=== PATIENT | female | born 1930 | race Caucasian/White ===

== ENCOUNTER 2017-10-05 13:58 | Inpatient (IN) | payer OTHER ==
[~2017-10-05] VITALS: Ht 170.2 cm; Wt 86.9 kg
--- NOTE | ~2017-10-05 | DEA ---
[facility] [place] [address] SUMMARY Name: RACHEL DIANE Room #: 360-P [facility] IN M.R.#: [id number] Admission: 10/05/17 Attend Phys: He Barrientos DO Discharge: 10/17/17 Date of : 31 Report #: [id number] THIS REPORT FOR: //name// CC: He Ayala Akkulugaadriana DATE OF SERVICE: 10/17/2017 TIME OF : 07/17/2018 at 2:30 a.m. HOSPITAL COURSE: The patient is an 87-year-old female who was admitted secondary to sepsis from urinary tract infection. Due to delirium, dementia and her decline in status, she was made a DNR and comfort care measures only after a long discussion with the family. She did pass away peacefully at the above date and time and the body was released to the family for processing at the home. <ELECTRONICALLY SIGNED> By: He Barrientos DO 10/23/17 1222 1207 1216 He Barrientos DO /nt
--- NOTE | ~2017-10-05 | HC ---
[facility] [place] [address] CONSULTATION Name: RACHEL DIANE Room #: 170-4 ADM IN M.R.#: [id number] Admission: 10/05/17 Attend Phys: He Barrientos DO Discharge: Date of : 31 Report #: [id number] THIS REPORT FOR: //name// CC: He Mayorga INFECTIOUS DISEASES CONSULTATION REASON FOR CONSULTATION: I was asked to evaluate concerning septic shock. HISTORY OF PRESENT ILLNESS: The patient was an 87-year-old [facility] resident, who presents with decreased mental status. She does have underlying dementia. Earlier this morning, she was found by nursing staff to be more somnolent. She would not eat. She was transferred to [facility] Emergency Room. She had temperature of 99.8. She has been tachycardic, in atrial fibrillation. Blood pressure dropped into the 80s and placed on Levophed drip and received IV fluids. She is on 2 liters of oxygen per nasal cannula. She has had no nausea, vomiting or diarrhea. She had previously been treated for urinary tract infection. She has underlying dementia. PAST MEDICAL HISTORY: Dementia, breast cancer with right mastectomy and previous urinary tract infection. Further details not available. ALLERGIES: SULFA. MEDICATIONS: As noted on her MAR, having received vancomycin and Zosyn. FAMILY HISTORY: Not available. SOCIAL HISTORY: Past smoker. No significant alcohol intake. REVIEW OF SYSTEMS: As noted above. PHYSICAL EXAMINATION: VITAL SIGNS: She is tachycardic at 133, blood pressure 88/44. She has peripheral IV in place. She is on 2 liters of oxygen per nasal cannula. GENERAL: She arouses, but will not follow commands or open her eyes. SKIN: She has a decubitus to her right lateral heel. No purulent drainage. No surrounding cellulitis. HEENT: Eyes unremarkable. Mouth dry. NECK: Supple. CHEST: Clear anteriorly with crackles heard in the bases bilaterally. HEART: Regular and tachycardic. No appreciable murmur, gallop or rub. ABDOMEN: Soft. Appeared tender in the lower abdomen. The patient would yell out. Fullness in the suprapubic region. GENITOURINARY: Incontinent of urine. Perianal examination unremarkable. [address] [address] CONSULTATION Name: RACHEL DIANE Room #: [facility] IN .R.#: [id number] Admission: 10/05/17 Attend Phys: He Barrientos DO Discharge: Date of : 31 Report #: [id number] LABORATORY STUDIES: Chest x-ray, bibasilar atelectasis. Urinalysis, pyuria and bacteriuria. Sodium 143, potassium 4.1, bicarbonate 24 and creatinine 1.7. Alkaline phosphatase 132. BNP 34,555. Hemoglobin 13.5, platelet count 186,000 and white count 24,000 with 42% bands and 5% metamyelocytes. Lactate 4. Blood cultures pending. Urine culture pending. IMPRESSION: An 87-year-old [facility] resident with septic shock. I suspect urinary tract source most likely. She has atelectasis in both bases. She has acute renal failure with lactic acidosis. May have a component of congestive heart failure as well. She has marked left shift on her leukocytosis. Toxic metabolic encephalopathy most likely. RECOMMENDATIONS: IV fluid. The patient placed Smith catheter. Ultrasound of her abdomen. Continue broad antibiotic coverage for healthcare-associated urinary tract infection. Serial laboratory studies including chemistry and CBC. [place]ica is poor considering the patient's advanced age. We will continue current resuscitative measures. <ELECTRONICALLY SIGNED> By: Jonas Sánchez MD 10/06/17 1003 2253 2346 Jonas Sánchez MD /nt
--- NOTE | ~2017-10-05 | HC ---
[facility] [place] [address] CONSULTATION Name: RACHEL DIANE Room #: 360-P [facility] IN M.R.#: [id number] Admission: 10/05/17 Attend Phys: He Barrientos DO Discharge: Date of : 31 Report #: [id number] THIS REPORT FOR: //name// CC: He Barrientos Jamie Akkulugari DATE OF SERVICE: 10/10/2017 CHIEF COMPLAINT: Right heel ulcer and left foot ulcer. HISTORY OF PRESENT ILLNESS: This is an 87-year-old female patient admitted to [facility] for acute mental status changes and dementia. She was noted to have ulcerations on her right heel and left foot and I have been asked to see her with regard to wound care. The patient's [id number] is present in the room. The patient is not able to answer any questions. PAST MEDICAL HISTORY: Positive for history of urinary tract infection, acute mental status changes, dementia, dehydration, breast cancer status post right mastectomy and generalized weakness. SOCIAL HISTORY: The patient is a former smoker. No history of alcohol or drug use. ALLERGIES: SULFA. CURRENT MEDICATION: Include lorazepam, albuterol, vancomycin, fentanyl, dextrose piperacillin, amiodarone, metoprolol, Depakote, hydrocodone, ondansetron. REVIEW OF SYSTEMS: Not obtainable due to patient's decreased level of alertness. PHYSICAL EXAMINATION: VITAL SIGNS: At this time include pulse 120, respiratory rate 18, blood pressure 180/99, temperature 98.0. GENERAL: This is a chronically ill-appearing female patient who appears to be in mild distress. HEENT: Head is normocephalic. Eyes are closed. NECK: Seems supple. LUNGS: Diminished. HEART: Tachycardic. ABDOMEN: Soft, nontender. EXTREMITIES: Demonstrate diminished distal pulses with relatively normal capillary refill, 1-2+ edema is noted. She has stage III pressure ulceration to the posterior portion of the right heel. It is relatively clean with some granulation and a little bit of fibrin and there is no evidence of infection. [facility] [address] [place] [address] CONSULTATION Name: ROXIRACHEL Room #: 360-P [facility] IN ..#: [id number] Admission: 10/05/17 Attend Phys: He Barrientos DO Discharge: Date of : 31 Report #: [id number] She has a deep tissue injury to the base of the left fifth metatarsal on the left foot. CLINICAL IMPRESSION: 1. Stage III pressure ulcer, right heel. 2. Deep tissue injury to the left base of fifth metatarsal. 3. Acute mental status changes. RECOMMENDATIONS: At this point in time, recommend continued use of Prevalon boot. She will need to be turned and repositioned every 2 hours. We will recommend ongoing care to the heel with a foam based dressing, Betadine to the left foot area. She will need nutritional support to maximize wound healing. I appreciate being asked to see her in consultation. <ELECTRONICALLY SIGNED> By: Froilan Fried MD 10/11/17 1005 1829 09 Froilan Fried MD /nt
--- NOTE | ~2017-10-05 | HC ---
[facility] [place] [address] CONSULTATION Name: RACHEL DIANE Room #: 360-P [facility] IN M.R.#: [id number] Admission: 10/05/17 Attend Phys: He Barrientos DO Discharge: 10/17/17 Date of : 31 Report #: [id number] THIS REPORT FOR: //name// CC: He Barrientos DO [facility] REQUESTING PHYSICIAN: Dr. Barrientos. CHIEF COMPLAINT: Altered mental status. HISTORY OF PRESENT ILLNESS: The patient is an 87-year-old female who presented to [facility] on 10/05/2017 initially with altered mental status beginning at 7:30 that morning. She was found to have atrial fibrillation with RVR in the Emergency Department and also suspected to have urinary tract infection and subsequently has been found to have group A strep bacteremia. Unfortunately, she has had a progressive decline in her overall mental status, has not been able to take p.o. significantly. She has had overall decreased responsiveness. There was some discussion with family with regards to the possibility of pursuing hospice care, prompting my consultation. The patient is currently DNR status, does have a durable power of bankruptcy attorney in her son, Carlos. She is currently not able to respond to questions. PAST MEDICAL HISTORY: Significant for atrial fibrillation, dementia, mild aortic regurgitation, moderate mitral regurgitation, history of breast cancer in remission. PAST SURGICAL HISTORY: Right mastectomy. SOCIAL HISTORY: Former smoker. Son, Carlos, is durable power of bankruptcy attorney. I have attempted to contact today, have not received a contact back with regard to this. ALLERGIES: SULFA. MEDICATIONS: Aurora, Depakote 250 mg at bedtime, lactulose, and rivastigmine. REVIEW OF SYSTEMS: Unable to obtain secondary to the patient's clinical condition. PHYSICAL EXAMINATION: VITAL SIGNS: Temperature 37.6, pulse 77, respirations 24, blood pressure 160/84, 95% on nasal cannula. GENERAL: The patient is not alert, poor attention level. She appears to be in no acute distress. HEENT: Unable to assess extraocular movements. Conjunctivae appear to be within normal limits. [facility] [address] [place] [address] CONSULTATION Name: RACHEL DIANE Room #: 360-P [facility].#: [id number] Admission: 10/05/17 Attend Phys: He Barrientos DO Discharge: 10/17/17 Date of : 31 Report #: [id number] CARDIOVASCULAR: Regular rate and rhythm, although she does have occasional aberrant complexes likely due to her respirations, previously in AFib. RESPIRATORY: Lungs appear to be clear to auscultation at this point in time. ABDOMEN: She does wince slightly to abdominal palpation or at least has increased responsiveness. She has diminished bowel sounds overall. EXTREMITIES: Does have diffuse edema 1-2+ bilateral upper extremity and 2+ lower extremity. INTEGUMENTARY: The patient does have bandages on the right foot secondary to heel wound. LABORATORY DATA: AST 104, ALT 45, creatinine 1.7. White blood cells 24.7, nitrite positive, 2+ leukocyte esterase and bacteria greater than 30 on her original UA. ASSESSMENT AND PLAN: 1. Sepsis secondary to possible urinary tract infection versus other organ being skin, central origin. She does have noted bacteremia. Condition appears to be critical overall. Unfortunately, with decreased p.o. intake I do believe that she is a candidate for palliative care measures. She does have decreased nasolabial folds indicating the potential eminency of demise. I have attempted to talk to the DPOA and I am awaiting a return communication from him. Later was able to spend 35 min discussing advanced care planning with plan to seek comfort care. 2. Bacteremia as above. 3. Delirium, severe, hypoactive, again also affecting her current health status. She is not likely to recover her ability to take oral intake soon, and this, I believe, is likely a contributing factor to her palliative care need. 4. Dementia, unknown previous severity, but likely to be moderate to severe. I do think that it is possible that her delirium will progress her dementia significantly. 5. Atrial fibrillation with rapid ventricular response. Management per primary team, appears to be sinus currently. I will continue to follow with the patient, will contact the primary team when I am aware of their decision. I have discontinued Depakote and rivastigmine given that these medications are not likely to be of benefit at this point in time. Thank you very much for the consultation. <ELECTRONICALLY SIGNED> By: Sharan Kapoor DO 10/23/17 1930 0937 1054 Sharan Kapoor DO /nt
--- NOTE | ~2017-10-05 | EKG ---
[address] [address] ELECTROCARDIOGRAM REPORT Name: RACHEL DIANE Room #: 360-P [facility] IN M.R.#: [id number] Admission: 10/05/17 Attend Phys: He Barrientos DO Discharge: Date of : 31 Report #: [id number] THIS REPORT FOR: //name// [facility] Test Date: 2017-10-07 Test Time: 10:19:10 Pat Name: RACHEL DIANE Department: Room: 360 P Gender: F Employee Placement Specialist: blaine : 1930 Requested By: Jayce Coyne Order Number: [id number] MD: Jayce Coyne Measurements Intervals [place] Rate: 79 P: 38 NC: 131 QRS: -12 QRSD: 101 T: 61 QT: 370 QTc: 425 Interpretive Statements Sinus rhythm Abnormal lateral Q waves Anterior infarct, old Compared to ECG 10/05/2017 16:24:35 Q waves now present Myocardial infarct finding now present Atrial fibrillation no longer present Early repolarization no longer present Electronically Signed On 10-07-2017 17:28:36 DIRECTOR GENERAL by Jayce Coyne [email or web address] <ELECTRONICALLY SIGNED> By: Jayce Coyne MD 10/07/17 1728 1019 1019 Jayce Coyne MD /EPI
--- NOTE | ~2017-10-05 | EKG ---
[address] [address] ELECTROCARDIOGRAM REPORT Name: RACHEL DIANE Room #: 360-[facility] IN M.R.#: [id number] Admission: 10/05/17 Attend Phys: He Barrientos DO Discharge: Date of : 31 Report #: [id number] THIS REPORT FOR: //name// [facility] Test Date: 2017-10-08 Test Time: 16:22:58 Pat Name: RACHEL DIANE Department: Room: 360 Gender: F 3Rd Grade Reading Teacher: blaine : 1930 Requested By: Jayce Coyne Order Number: [id number] MD: Jamil Carlisle Measurements Intervals [place] Rate: 88 P: 7 SC: 141 QRS: -15 QRSD: 96 T: 36 QT: 395 QTc: 478 Interpretive Statements Sinus rhythm Atrial premature complex Borderline left axis deviation Anterior infarct, old Compared to ECG 10/07/2017 10:19:10 Atrial premature complex(es) now present Electronically Signed On 10-09-2017 8:04:52 HEAD STRENGTH AND CONDITIONING COACH by Jamil Carlisle [email or web address] <ELECTRONICALLY SIGNED> By: Jamil Carlisle MD, [facility] 10/09/17 0804 1622 1622 Jamil Carlisle MD, [facility] /EPI
--- NOTE | ~2017-10-05 | 2DMMODE ---
[facility] [address] [place] [address] 2 D/M-MODE ECHOCARDIOGRAM Name: ROXIRACHEL Dell Room #: 170-4 ADM IN ..#: [id number] Admission: 10/05/17 Attend Phys: He Barrientos, Discharge: Date of : 31 Date of Service: 10/06/17 0930 Report #: [id number] THIS REPORT FOR: //name// APPROVED REPORT Study performed: 10/06/2017 08:34:47 EXAM: Comprehensive 2D, Doppler, and color-flow Echocardiogram Patient Location: ER Room #: 4 Status: routine BSA: 1.84 HR: 88 bpm Rhythm: NSR/Irregular Other Information Study Quality: Adequate/Poor patient cooperation Indications Atrial Fibrillation 2D Dimensions RVDd: 36.81 mm LVEF(%): 54.82 (>50%) IVSd: 10.73 (7-11mm) LVOT Diam: 20.98 (18-24mm) LVDd: 48.77 mm PWd: 10.95 (7-11mm) Ascending Ao: 32.33 (22-36mm) LVDs: 34.87 (25-40mm) Aortic Root: 30.93 mm Jolley's LVEF: 54.82 % Volumes Left Atrial Volume (Systole) Single Plane 4CH: 57.32 mL Single Plane 2CH: 71.32 mL LA ESV Index: 39.00 mL/m2 Aortic Valve AoV Peak Efren.: 2.28 m/s AO Peak Gr.: 20.82 mmHg LVOT Max P.75 mmHg AO Mean Gr.: 11.44 mmHg AO V2 Mean: 1.63 m/s LVOT Max V: 0.97 m/s AO V2 VTI: 43.18 cm GILBERT Vmax: 1.46 cm2 Mitral Valve [facility] [place] [address] 2 D/M-MODE ECHOCARDIOGRAM Name: ZELDARACHEL ARAGON Room #: 170-4 [facility] IN .R.#: [id number] Admission: 10/05/17 Attend Phys: He Barrientos, Discharge: Date of : 31 Date of Service: 10/06/17 0930 Report #: [id number] E/A Ratio: 0.9 MV Decel. Time: 142.85 ms MV E Max Efren.: 1.23 m/s MV A Efren.: 1.41 m/s MV PHT: 41.43 ms IVRT: 48.44 ms Pulmonary Valve PV Peak Efren.: 1.18 m/s PV Peak Gr.: 5.74 mmHg Tricuspid Valve TR Peak Efren.: 2.68 m/s RAP Estimate: 10.00 mmHg TR Peak Gr.: 28.76 mmHg PA Pressure: 39.00 mmHg Left Ventricle The left ventricle is normal size. There is normal left ventricular wall thickness. Left ventricular systolic function is normal. LVEF is 55%. Mild diastolic dysfunction is present (impaired relaxation pattern). Right Ventricle The right ventricle is normal size. The right ventricular systolic function is normal. Atria Left atrium is mildly dilated. The right atrium size is normal. Aortic Valve The aortic valve is sclerotic. Mild aortic regurgitation. There is no aortic valvular stenosis. Mitral Valve Mitral valve leaflets are mildly thickened. Mild mitral annular calcification. Mild to moderate mitral regurgitation. No evidence of mitral valve stenosis. Tricuspid Valve The tricuspid valve is normal in structure. Trace tricuspid regurgitation. Estimated PAP is 35-40mmHg. Pulmonic Valve Pulmonic valve is not well visualized. [place] [address] 2 D/M-MODE ECHOCARDIOGRAM Name: ROXIRACHEL Room #: 170-4 [facility] IN .R.#: [id number] Admission: 10/05/17 Attend Phys: He Barrientos, Discharge: Date of : 31 Date of Service: 10/06/17 0930 Report #: [id number] The aortic root is normal in size. The ascending aorta is normal in size. IVC is normal in size and collapses <50% with inspiration. Pericardium There is no pericardial effusion. <Conclusion> The left ventricle is normal size. Left ventricular systolic function is normal. Mild diastolic dysfunction is present (impaired relaxation pattern). The right ventricle is normal size. Left atrium is mildly dilated. The aortic valve is sclerotic. Mild aortic regurgitation. Mild to moderate mitral regurgitation. Trace tricuspid regurgitation. Estimated PAP is 35-40mmHg. <ELECTRONICALLY SIGNED> By: Adán Mendieta MD 10/06/17929 9 9 Adán Mendieta MD /INF
--- NOTE | ~2017-10-05 | EKG ---
[address] [address] ELECTROCARDIOGRAM REPORT Name: ZELDAMARGORACHEL Dell Room #: 170-5 [facility]..#: [id number] Admission: 10/05/17 Attend Phys: He Barrientos DO Discharge: Date of : 31 Report #: [id number] THIS REPORT FOR: //name// [facility] Test Date: 2017-10-05 Test Time: 16:24:35 Pat Name: RACHEL DIANE Department: Room: 170 5 Gender: F Trommel Tender: MZOOLuiz : 1930 Requested By: He Barrientos Order Number: [id number] MD: aJyce Coyne Measurements Intervals [place] Rate: 201 P: NE: QRS: -1 QRSD: 76 T: 204 QT: 218 QTc: 399 Interpretive Statements Atrial fibrillation with rapid V-rate Repolarization abnormality, prob rate related Baseline wander in lead(s) V3,V4 Compared to ECG 10/05/2017 15:07:30 Early repolarization now present Sinus rhythm no longer present Atrial premature complex(es) no longer present Myocardial infarct finding no longer present Electronically Signed On 10-05-2017 23:11:48 BOBBIN DRIER by Jayce Coyne [email or web address] <ELECTRONICALLY SIGNED> By: Jayce Coyne MD 10/05/17 2311 1624 1624 Jayce Coyne MD /EPI
--- NOTE | ~2017-10-05 | EKG ---
[place] [address] [address] [facility] [place] [address] ELECTROCARDIOGRAM REPORT Name: VANI DIANELINE Dell Room #: 170-5 [facility]..#: [id number] Admission: 10/05/17 Attend Phys: He Barrientos DO Discharge: Date of : 31 Report #: [id number] THIS REPORT FOR: //name// [facility] ED Test Date: 2017-10-05 Test Time: 15:07:30 Pat Name: RACHEL DIANE Department: Room: 170 Gender: F Extrusion Supervisor: MZOOLuiz : 1930 Requested By: Jonas Hatch Order Number: [id number] MD: Jamil Carlisle Measurements Intervals [place] Rate: 97 P: MN: QRS: -7 QRSD: 93 T: 54 QT: 312 QTc: 397 Interpretive Statements Sinus rhythm with occasional atrial premature complexes Cannot rule out anterior infarct, old Artifact in lead(s) II,aVR,aVF,V1,V2 Compared to ECG 07/11/2016 17:29:07 No significant change was found Electronically Signed On 10-05-2017 17:09:37 REGIONAL GUIDE by Jamil Carlisle [email or web address] <ELECTRONICALLY SIGNED> By: Jamil Carlisle MD, [facility] 10/05/17 1709 1507 1507 Jamil Carlisle MD, [facility] /EPI
[~2017-10-05 13:58] MED LIST: ATIVAN0.5 MG PO; B12INJ; DEPAKOTE 250MG250 M1 PO; DEPAKOTE125 MG PO; DIVALPROEX SOD125 M1 PO; KEFLEX500 MG PO; LACTULOSE10 GM/15 M PO; NORCO 5-325 TA1 EACH PO; RIVASTIGMINE1.5 MG PO; SEROQUEL 25 MG25 M1 PO; TYLENOL325 MG PO
[2017-10-05 15:02] LABS: URINE BLOOD 3+ (Negative); URINE COLOR YELLOW; URINE GLUCOSE-RANDOM* NEGATIVE (Negative); URINE KETONES TRACE (Negative); URINE LEUKOCYTES-REFLEX 2+ (Negative); URINE NITRITE-REFLEX POSITIVE (Negative); URINE PROTEIN (DIPSTICK) 2+ (Negative); URINE SPECIFIC GRAVITY 1.025 (1.005-1.035)
[2017-10-05 15:03] LABS: URINE CLARITY CLOUDY
[2017-10-05 15:04] LABS: URINE BILIRUBIN NEGATIVE (Negative)
[2017-10-05 15:07] LABS: SQUAMOUS 0-3 Few /LPF (0-3)
[2017-10-05 15:08] LABS: BACTERIA-REFLEX >30 Many /HPF (None Seen); CASTS None Seen /LPF (None Seen); CRYSTALS None Seen /LPF (None Seen); URINE RBC 3-10 Few /HPF (0-2)
[2017-10-05 15:11] LABS: BE(vivo) -7.1 mmol/L (-2 to +3); HCO3 15.5 mmol/L (22.0-26.0); PCO2 VENOUS 23.6 mmHg (41.0-51.0); PO2 VENOUS 132.4 mmHg (35.0-45.0)
[2017-10-05 16:42] LABS: HEMATOCRIT 40.3 % (37.0-47.0); HEMOGLOBIN 13.5 gm/dL (12.0-15.0); MCH 30.9 pg (26.0-34.0); MCHC 33.4 g/dL (28.0-37.0); MCV 92.3 fL (80.0-100.0); PLATELET COUNT 186 thou/uL (150-400); RBC 4.36 mil/uL (4.20-5.00); RDW 15.8 % (10.5-14.5); WBC 24.7 thou/uL (4.0-11.0)
[2017-10-05 16:54] LABS: CALCIUM 9.4 mg/dL (8.5-10.1); CREATININE 1.7 mg/dL (0.6-1.0); POTASSIUM 4.1 mmol/L (3.5-5.1)
[2017-10-05 16:58] LABS: ALBUMIN 2.3 g/dL (3.4-5.0); MAGNESIUM 1.9 mg/dL (1.8-2.4); TOTAL BILIRUBIN 0.6 mg/dL (<0.1-1.0); TOTAL PROTEIN 6.9 g/dL (6.4-8.2); TROPONIN-I 0.09 ng/mL (<0.06)
[2017-10-05 17:18] LABS: ABSOLUTE NEUTROPHILS 22.2 thou/uL (1.4-8.2); METAMYELOCYTES 5 %
[2017-10-05 17:19] LABS: ANISOCYTOSIS 1+; POLYCHROMASIA OCCASIONAL
[2017-10-06 00:16] LABS: BE(vivo) -3.8 mmol/L (-2 to +3); HCO3 20.5 mmol/L (22.0-26.0); PCO2 34.5 mmHg (35.0-45.0); PO2 69.8 mmHg (80.0-100.0); pH 7.391 (7.360-7.450); sO2 94.1 % (92.0-98.0)
[2017-10-06 05:55] LABS: HEMATOCRIT 39.2 % (37.0-47.0); HEMOGLOBIN 12.5 gm/dL (12.0-15.0); MCH 30.1 pg (26.0-34.0); MCHC 31.9 g/dL (28.0-37.0); MCV 94.4 fL (80.0-100.0); PLATELET COUNT 157 thou/uL (150-400); RBC 4.15 mil/uL (4.20-5.00); RDW 16.8 % (10.5-14.5); WBC 27.7 thou/uL (4.0-11.0)
[2017-10-06 06:18] LABS: ALBUMIN 1.9 g/dL (3.4-5.0); CALCIUM 7.9 mg/dL (8.5-10.1); CREATININE 1.2 mg/dL (0.6-1.0); POTASSIUM 3.8 mmol/L (3.5-5.1); TOTAL BILIRUBIN 0.6 mg/dL (<0.1-1.0); TOTAL PROTEIN 5.4 g/dL (6.4-8.2)
[2017-10-06 08:26] LABS: ABSOLUTE NEUTROPHILS 25.2 thou/uL (1.4-8.2); METAMYELOCYTES 5 %
[2017-10-06 08:27] LABS: ANISOCYTOSIS 1+; POLYCHROMASIA OCCASIONAL
[2017-10-06 08:32] LABS: TOXIC GRANULATION SLIGHT
[2017-10-06 14:16] VITALS: BP 127/57
[2017-10-06 15:51] VITALS: BP 126/59
[2017-10-06 15:57] VITALS: BP 129/54
[2017-10-06 19:52] VITALS: BP 116/47
[2017-10-07 04:13] VITALS: BP 150/62
[2017-10-07 04:54] LABS: HEMATOCRIT 35.5 % (37.0-47.0); HEMOGLOBIN 11.7 gm/dL (12.0-15.0); MCH 30.4 pg (26.0-34.0); MCHC 32.9 g/dL (28.0-37.0); MCV 92.6 fL (80.0-100.0); PLATELET COUNT 138 thou/uL (150-400); RBC 3.84 mil/uL (4.20-5.00); RDW 16.1 % (10.5-14.5); WBC 25.9 thou/uL (4.0-11.0)
[2017-10-07 05:15] LABS: CALCIUM 8.4 mg/dL (8.5-10.1); CREATININE 0.9 mg/dL (0.6-1.0); POTASSIUM 3.3 mmol/L (3.5-5.1)
[2017-10-07 06:26] LABS: ABSOLUTE NEUTROPHILS 23.6 thou/uL (1.4-8.2)
[2017-10-07 06:27] LABS: ANISOCYTOSIS 1+
[2017-10-07 06:28] LABS: TOXIC GRANULATION 1+
[2017-10-07 08:48] VITALS: BP 143/99
[2017-10-07 12:24] VITALS: BP 135/75
[2017-10-07 17:34] VITALS: BP 135/86
[2017-10-07 20:40] VITALS: BP 152/73
[2017-10-08 00:40] VITALS: BP 146/77
[2017-10-08 04:10] VITALS: BP 161/75
[2017-10-08 05:46] LABS: HEMATOCRIT 35.2 % (37.0-47.0); HEMOGLOBIN 11.6 gm/dL (12.0-15.0); MCH 30.4 pg (26.0-34.0); MCHC 32.9 g/dL (28.0-37.0); MCV 92.5 fL (80.0-100.0); RBC 3.8 mil/uL (4.20-5.00); RDW 15.9 % (10.5-14.5); WBC 22.5 thou/uL (4.0-11.0)
[2017-10-08 05:58] LABS: ALBUMIN 1.6 g/dL (3.4-5.0); CALCIUM 8.6 mg/dL (8.5-10.1); CREATININE 0.8 mg/dL (0.6-1.0); POTASSIUM 3.4 mmol/L (3.5-5.1); TOTAL BILIRUBIN 0.4 mg/dL (<0.1-1.0); TOTAL PROTEIN 5.9 g/dL (6.4-8.2)
[2017-10-08 10:01] VITALS: BP 182/98
[2017-10-08 17:47] VITALS: BP 168/94
[2017-10-08 19:35] VITALS: BP 171/92
[2017-10-09 04:12] VITALS: BP 147/100
[2017-10-09 06:26] LABS: HEMATOCRIT 37.9 % (37.0-47.0); HEMOGLOBIN 12.7 gm/dL (12.0-15.0); MCH 30.5 pg (26.0-34.0); MCHC 33.4 g/dL (28.0-37.0); MCV 91.4 fL (80.0-100.0); RBC 4.15 mil/uL (4.20-5.00); RDW 15.4 % (10.5-14.5); WBC 17.5 thou/uL (4.0-11.0)
[2017-10-09 06:51] LABS: ALBUMIN 1.7 g/dL (3.4-5.0); CALCIUM 8.3 mg/dL (8.5-10.1); TOTAL BILIRUBIN 0.5 mg/dL (<0.1-1.0); TOTAL PROTEIN 6.4 g/dL (6.4-8.2)
[2017-10-09 08:29] VITALS: BP 148/86
[2017-10-09 10:28] LABS: BE(vivo) -3.4 mmol/L (-2 to +3); HCO3 19.9 mmol/L (22.0-26.0); PCO2 30.6 mmHg (35.0-45.0); PO2 64.9 mmHg (80.0-100.0); sO2 93.6 % (92.0-98.0)
[2017-10-09 11:03] VITALS: BP 148/99
[2017-10-09 15:23] VITALS: BP 139/85
[2017-10-09 16:12] LABS: URINE BILIRUBIN NEGATIVE (Negative); URINE BLOOD TRACE (Negative); URINE CLARITY SL CLOUDY; URINE COLOR YELLOW; URINE GLUCOSE-RANDOM* NEGATIVE (Negative); URINE KETONES NEGATIVE (Negative); URINE LEUKOCYTES 1+ (Negative); URINE NITRITE NEGATIVE (Negative); URINE PROTEIN (DIPSTICK) 1+ (Negative); URINE SPECIFIC GRAVITY 1.025 (1.005-1.035); URINE UROBILINOGEN 0.2 E.U./dl (0.2-1.0)
[2017-10-09 16:19] LABS: HYALINE CASTS 0-3 Few /LPF (None Seen); SQUAMOUS 4-10 Moderate /LPF (0-3); URINE RBC 0-2 Rare /HPF (0-2); URINE WBC >25 Many /HPF (0-5)
[2017-10-09 16:20] LABS: AMORPHOUS URATES Few /LPF (None Seen)
[2017-10-09 20:00] VITALS: BP 110/95
[2017-10-10 03:14] VITALS: BP 139/81
[2017-10-10 06:19] LABS: HEMATOCRIT 36.8 % (37.0-47.0); MCHC 32.6 g/dL (28.0-37.0); MCV 92.2 fL (80.0-100.0); RDW 15.8 % (10.5-14.5); WBC 16.8 thou/uL (4.0-11.0)
[2017-10-10 10:05] VITALS: BP 159/86
[2017-10-10 17:17] VITALS: BP 180/99
[2017-10-10 19:25] VITALS: BP 170/101
[2017-10-11 03:24] VITALS: BP 160/84
[2017-10-11 08:00] VITALS: BP 137/70
[2017-10-11 12:23] VITALS: BP 120/65
[2017-10-11 16:18] VITALS: BP 122/52
[2017-10-11 20:20] VITALS: BP 138/72
[2017-10-12 04:30] VITALS: BP 120/66
[2017-10-12 07:59] VITALS: BP 185/64
[2017-10-12 11:15] VITALS: BP 177/68
[2017-10-12 15:07] VITALS: BP 143/56
[2017-10-12 20:00] VITALS: BP 160/89
[2017-10-13 04:00] VITALS: BP 131/74
[2017-10-13 08:00] VITALS: BP 195/71
[2017-10-13 19:07] VITALS: BP 189/81
[2017-10-13 23:15] VITALS: BP 162/63
[2017-10-14 07:50] VITALS: BP 227/90
[2017-10-14 21:30] VITALS: BP 186/98
[2017-10-15 04:15] VITALS: BP 157/80
[2017-10-15 07:54] VITALS: BP 140/61
[2017-10-15 19:45] VITALS: BP 173/60
[2017-10-16 04:10] VITALS: BP 157/60
[2017-10-16 08:39] VITALS: BP 125/51
== END 2017-10-17 06:08 | DRG 871 ==
LOC: ER 13:58 → EROBS 16:48 → 3W 16:48 → EROBS 16:48 → 3W 10-06 15:40
PROVIDERS: Emergency Medicine; Family Medicine; Hospitalist; Internal Medicine; Specialist
PROC: 05HC33Z Insertion of Infusion Device into Left Basilic Vein, Percutaneous Approach (ICD-10-PCS; principal; 2017-10-09)
DX: A40.0 Sepsis due to streptococcus, group A (principal); G92 Toxic encephalopathy; R65.21 Severe sepsis with septic shock; I50.33 Acute on chronic diastolic (congestive) heart failure; L89.613 Pressure ulcer of right heel, stage 3; N39.0 Urinary tract infection, site not specified; J98.11 Atelectasis; E87.3 Alkalosis; E87.0 Hyperosmolality and hypernatremia; F03.90 Unspecified dementia, unspecified severity, without behavioral disturbance, psychotic disturbance, mood disturbance, and anxiety; I48.91 Unspecified atrial fibrillation; E87.6 Hypokalemia; Z51.5 Encounter for palliative care; B96.20 Unspecified Escherichia coli [E. coli] as the cause of diseases classified elsewhere; K80.20 Calculus of gallbladder without cholecystitis without obstruction; Z85.3 Personal history of malignant neoplasm of breast; Z90.11 Acquired absence of right breast and nipple; Z79.899 Other long term (current) drug therapy; Z88.2 Allergy status to sulfonamides; Z87.891 Personal history of nicotine dependence; Z66 Do not resuscitate
CPT/HCPCS: 10879; 27000